=== PATIENT | male | born 2000 | race Asian ===

== ENCOUNTER 2022-09-16 18:51 | Inpatient (IN) | payer OTHER ==
[~2022-09-16] VITALS: Ht 170.2 cm; Wt 75.3 kg
--- NOTE | 2022-09-16 20:08 | NUR ---
BIBS. TO ER BED 3. AAOX4. NOT IN RESP DISTRESS. AMBULATORY. CAME IN FOR LOWER ABD PAIN X 1 DAY. REPORTS NORMAL BM. HOWEVER ENDORSES URINARY FREQUENCY AND URGENCY. PT IS AFEBRILE. URINE COLLECTED. AWAITING FOR EVAL
--- NOTE | 2022-09-16 20:45 | NUR ---
PT TAKEN TO CT VIA W/C
--- NOTE | 2022-09-16 20:51 | NUR ---
PT RETURNED TO ER BED [address]
[2022-09-16] MEDS ORDERED: IV NS 0.9% 1,000 ML BAG IV ONE (21:00)
[2022-09-16 21:07] LABS: BILIRUBIN,URINE NEGATIVE (NEGATIVE); COLOR,URINE YELLOW (YELLOW); LEUKOCYTE ESTERASE ,URINE NEGATIVE (NEGATIVE); NITRITE, URINE NEGATIVE (NEGATIVE); PROTEIN,URINE NEGATIVE (NEGATIVE); UGLUCOSE NEGATIVE (NEGATIVE); UROBILINOGEN,URINE 0.2 EU/dL (0.2)
[2022-09-16 21:14] LABS: RBC,URINE 0-2 /HPF (0-2); WBC,URINE 0-2 /HPF (0-3)
[2022-09-16 21:15] LABS: BACTERIA,URINE None seen /HPF (None Seen); SQUAMOUS EPITHELIAL CELL,UR 0-2 /HPF (None Seen); URINE AMORPHOUS PHOSPHATES Moderate /HPF (None Seen)
[2022-09-16] MEDS ORDERED: PIPERACILLIN /TAZOBACTAM 3.375 G in IV D5W 50 ML IV ONE (21:30)
[2022-09-16] MEDS ORDERED: PIPERACILLIN /TAZOBACTAM 3.375 G VIAL IV ONE (21:35)
--- NOTE | 2022-09-16 21:41 | NUR ---
COVID ANTIGEN SWAB COLLECTED AND SENT TO LAB
--- NOTE | 2022-09-16 21:42 | NUR ---
DR JACKIE MAGALLON PER DR SAKINA VU
[2022-09-16 21:46] LABS: BASOPHILS % (AUTO) 0.2 % (0.0-2.0); EOSINOPHILS % (AUTO) 1.7 % (0.0-6.0); HEMATOCRIT 43 % (39-51); HEMOGLOBIN 14.4 g/dL (13.5-17.5); LYMPHOCYTES # (AUTO) 1.8 K/uL (0.8-4.8); LYMPHOCYTES % (AUTO) 27.3 % (20.0-44.0); MEAN CORPUSCULAR HGB CONC 34 g/dl (31.0-36.0); MEAN CORPUSCULAR VOLUME 87 fL (80-96); MONOCYTES # (AUTO) 0.4 K/uL (0.1-1.30); NEUTROPHILS # (AUTO) 4.1 K/uL (1.8-8.9); NEUTROPHILS % (AUTO) 63.8 % (43.0-81.0); PLATELET COUNT (AUTO) 168 K/uL (150-450); RED BLOOD CELL COUNT(AUTO) 4.89 MIL/uL (4.5-6.0); WHITE BLOOD COUNT (AUTO) 6.4 K/uL (4.3-11.0)
[2022-09-16 22:06] LABS: CALCIUM, SERUM 9.2 mg/dL (8.5-10.1); CREATININE 1.1 mg/dL (0.6-1.3); POTASSIUM 3.2 mmol/L (3.5-5.1)
[2022-09-16 22:12] LABS: ALBUMIN 4.4 g/dL (3.4-5.0); BILIRUBIN,DIRECT 0.2 mg/dL (0.0-0.2); BILIRUBIN,TOTAL 0.5 mg/dL (0.2-1.0); TOTAL PROTEIN, SERUM 7.7 g/dL (6.4-8.2)
--- NOTE | 2022-09-16 22:19 | NUR ---
[facility] PAGED
[2022-09-16] MEDS ORDERED: ONDANSETRON HCL/PF 4 MG/2 ML VIAL IV ONE (22:30)
[2022-09-16] MEDS ORDERED: MORPHINE SULFATE INJ 2 MG/ML DISP.SYRIN IV ONE (22:30)
[2022-09-16] MEDS ORDERED: ONDANSETRON HCL/PF 4 MG/2 ML VIAL ONE (22:37)
[2022-09-16] MEDS ORDERED: MORPHINE SULFATE INJ 4 MG/ML DISP.SYRIN ONE (22:37)
[2022-09-17] MEDS ORDERED: ONDANSETRON HCL/PF 4 MG/2 ML VIAL IVP PRN
[2022-09-17] MEDS ORDERED: MAGNESIUM HYDROXIDE 30 ML UDC PO PRN
[2022-09-17] MEDS ORDERED: ZOLPIDEM TARTRATE 5 MG TABLET PO PRN
[2022-09-17] MEDS ORDERED: Z GUARD REMEDY 4 OZ OINT TP PRN
[2022-09-17] MEDS ORDERED: IV D5/0.45 NACL 1,000 ML IV PRN
[2022-09-17] MEDS ORDERED: ACETAMINOPHEN 325 MG TABLET PO PRN
[2022-09-17] MEDS ORDERED: MAG HYDROX/AL HYDROX/SIMETH 30 ML UDC PO PRN
--- NOTE | 2022-09-17 00:28 | NUR ---
bed 317-2
[2022-09-17] MEDS: POTASSIUM CL. PREMIX PERIPHER. 50 ML IV SCH ×4 (00:31→03:32)
--- NOTE | 2022-09-17 00:43 | NUR ---
REPORT GIVEN TO 3W RN FOR ABIGAIL
--- NOTE | 2022-09-17 00:55 | NUR ---
PT TRANSFERRING TO 3 317-2 VIA ACL PROTOCOL. VSS. ALL BELONGINGS WITH PT
[2022-09-17 01:05] VITALS: BP 119/63
--- NOTE | 2022-09-17 01:30 | NUR ---
MS GEODUCK DIVER NOTE RECEIVED REPORT FROM MANUAL ARTS TEACHER JESSICA AND PATIENT CAME TO THE UNIT AT AROUND 0105 VIA GURNEY WITH ER STAFF. PATIENT WAS ADMITTED D/T LOWER ABDOMINAL PAIN AND URINARY FREQUENCY AND URGENCY. DIRECTED TO ROOM. PATIENT IS ALERT AND ORIENTED X4. ABLE TO COMMUNICATE NEEDS WITH THE STAFFS. AFEBRILE AND NOT IN ANY FORM OF ACUTE DISTRESS. BREATHING EVEN AND NON LABORED. LUNG SOUNDS CLEAR ON AUSCULTATION. WITH MINIMAL PAIN AT THIS TIME. PATIENT NOTED WITH IV ACCESS ON LAC 18G RUNNING WITH 10MEQ KCL THAT WAS STARTER IN THE ER PER REPORT. EXPLAINED ADMISSION PROCESS AND AGREED TO IT. PATIENT IS AMBULATORY AND NO SKIN ISSUE WAS NOTED. VITALS TAKEN AND FOLLOWS: BP- 119/63, P- 68, T- 97.9, R- 20, O2 SAT ON RA 99%. ORIENTED TO ENVIRONMENT. LIST OF BELONGINGS ACCOMPLISHED BY ASSIGNED STAFF. ADVISED THE PATIENT TO REMAIN ON NPO ORDERED. SAFETY MEASURES IN PLACE. KEPT BED IN LOCKED AND IN LOW POSITION. SIDE RAILS UP X2. ADVISED TO USE THE CALL LIGHT WHEN IN NEED OF ASSISTANCE.
[2022-09-17 02:12] VITALS: BP 119/63
[2022-09-17] MEDS: MORPHINE SULFATE INJ 2 MG/ML DISP.SYRIN IV PRN ×3 (04:20→22:27)
[2022-09-17] MEDS ORDERED: PIPERACILLIN /TAZOBACTAM 3.375 G VIAL IV ONE (05:55)
[2022-09-17] MEDS ORDERED: ZOSYN IVPB 3.375 G in IV D5W 50ml IV SCH (06:00)
[2022-09-17 06:26] LABS: BASOPHILS % (AUTO) 0.4 % (0.0-2.0); EOSINOPHILS % (AUTO) 1.1 % (0.0-6.0); HEMATOCRIT 38 % (39-51); HEMOGLOBIN 12.9 g/dL (13.5-17.5); LYMPHOCYTES # (AUTO) 1.4 K/uL (0.8-4.8); LYMPHOCYTES % (AUTO) 21.6 % (20.0-44.0); MEAN CORPUSCULAR HGB CONC 34 g/dl (31.0-36.0); MEAN CORPUSCULAR VOLUME 87 fL (80-96); MONOCYTES # (AUTO) 0.5 K/uL (0.1-1.30); MONOCYTES % (AUTO) 7.4 % (2.0-12.0); NEUTROPHILS # (AUTO) 4.6 K/uL (1.8-8.9); NEUTROPHILS % (AUTO) 69.5 % (43.0-81.0); PLATELET COUNT (AUTO) 142 K/uL (150-450); RED BLOOD CELL COUNT(AUTO) 4.32 MIL/uL (4.5-6.0); WHITE BLOOD COUNT (AUTO) 6.6 K/uL (4.3-11.0)
--- NOTE | 2022-09-17 06:30 | NUR ---
MS RN NOTE PATIENT IN BED, ASLEEP BUT EASY TO AROUSE AND RESPONSIVE. ABLE TO MAKE NEEDS KNOWN. AFEBRILE AND NOT IN ANY FORM OF ACUTE DISTRESS. BREATHING EVEN AND NON LABORED. LUNG SOUNDS CLEAR ON AUSCULTATION. WITH IV ACCESS ON LAC 18G RUNNING WITH D5 1/2 NS AT 125ML/HR. ADVISED THE PATIENT TO REMAIN ON NPO ORDERED. MEDICATED ORDERED. ON IV ATB, MONITORED FOR ANY ADVERSE REACTION. SAFETY MEASURES IN PLACE. KEPT BED IN LOCKED AND IN LOW POSITION. SIDE RAILS UP X2. ADVISED TO USE THE CALL LIGHT WHEN IN NEED OF ASSISTANCE. ALL NURSING NEEDS ATTENDED. ENDORSED TO INCOMING SHIFT FOR CONTINUITY OF CARE.
[2022-09-17 07:13] LABS: CALCIUM, SERUM 8.3 mg/dL (8.5-10.1); CREATININE 0.9 mg/dL (0.6-1.3); MAGNESIUM 2.1 mg/dL (1.8-2.4); POTASSIUM 3.8 mmol/L (3.5-5.1)
--- NOTE | 2022-09-17 07:15 | NUR ---
MS NEVAREZ INITIAL NOTES RECEIVED REPORT FROM AM NURSE AURORA AND OR NURSE CAME TO SOCKET PULLER THE PATIENT FOR SURGERY. PT IS ALERT ORIENTED. NO SIGNS OF ANY ACUTE PAIN OR ANY DISCOMFORT NOTED. WILL CONTINUE MONITORING. Addendum: 09/17/22 at 1924 by DAWN MENCHACA LVN DISREGARD WRONG TIME DOCUMENTATION.
--- NOTE | 2022-09-17 07:15 | NUR ---
ms rn received on bed, awake,alert,oriented x4,not in any form of distress, respirations even and unlabored,no sob noted noted, lungs are clear,abdomen soft,positive bowel sounds, denies pain at this time, will monitor patient.
[2022-09-17 08:00] VITALS: BP 110/64
[2022-09-17] MEDS ORDERED: LORA10TA7 PO (08:51)
[2022-09-17] MEDS: PANTOPRAZOLE 40 MG VIAL IV SCH (09:26)
[2022-09-17] MEDS: PIPERACILLIN /TAZOBACTAM 3.375 G in IV D5W 100 ML IV SCH ×2 (14:00→22:16)
[2022-09-17] MEDS ORDERED: ANESTHESIA TRAY IN PYXIS 1 EA TRAY MC ONE (14:49)
[2022-09-17] MEDS ORDERED: BUPIVACAINE MPF W/EPI 0.25% 30 ML VIAL ONE (14:50)
[2022-09-17] MEDS ORDERED: LIDOCAINE 1%-EPI 1:100,000 20 ML VIAL ONE (14:51)
--- NOTE | 2022-09-17 15:12 | NUR ---
ms rn patient remains npo at this time, will obtain consent for surgery per order.
[2022-09-17 15:43] VITALS: BP 113/60
--- NOTE | 2022-09-17 17:23 | NUR ---
MS RN GELY Fay CAME TO SEE PT, WILL HAVE SURGERY AT 6PM,PATIENT IS AWARE, ALL NEEDS ATTENDED.
--- NOTE | 2022-09-17 17:43 | NUR ---
MS RN STILL WAITING FOR SURGERY TO BE DONE, OR DEPARTMENT , AWARE,STILL ONE CASE GOING ON, PATIENT WILL BE NEXT.
--- NOTE | 2022-09-17 19:15 | NUR ---
MS ROQUE INITIAL NOTES RECEIVED REPORT FROM AM NURSE AURORA , OR NURSE CAME TO SECURITY TECH THE PT FOR SURGERY. DX OF APPENDICITIS. PT IS ALERT ORIENTED X4, NO SIGNS OF ANY PAIN NOTED AT THIS TIME. WILL CONTINUE MONITORING.
[2022-09-17] MEDS ORDERED: ROCURONIUM BROMIDE 50 MG/5 ML ONE (19:57)
[2022-09-17] MEDS ORDERED: FENTANYL PF 100MCG/2ML AMPUL ONE (19:57)
[2022-09-17 21:40] VITALS: BP 127/75
--- NOTE | 2022-09-17 21:50 | NUR ---
ms dariel notes Received pt from recovery room S/p Laparoscopic appendectomy and got report from recovery nurse. Pt is alert oriented x4, no signs fo any N/V and any discomfort noted at this time. Re- start the IVF D51/2NS at 125 ml/hr as ordered. Vital signs taken BP 122/75, pulse 80, resp.18, temp 97.9 and o2 sat 99%. kept him comfortable at all times. Ice pack also applied for pt comfort. will continue monitoring.
--- NOTE | 2022-09-17 22:10 | NUR ---
ms dariel notes Called Pharmacy to verified if its ok to give Zosyn IVPB that was due at 21:00 because pt had Ancef at recovery room. "OK ' to give per pharmacy even its due an hr ago. will continue monitoring.
[2022-09-18] MEDS: PIPERACILLIN /TAZOBACTAM 3.375 G in IV D5W 100 ML IV SCH ×2 (05:06→12:35)
--- NOTE | 2022-09-18 06:50 | NUR ---
MS CROP GRAIN OR LIVE[employer]OCK FARM MANAGER CLOSING NOTES PT BACK TO SLEEP , DENIES ANY PAIN OR ANY DISCOMFORT AT THIS TIME. ALL DUE MEDS GIVEN AND ALL NEEDS MET. KEPT HIM COMFORTABLE AT ALL TIMES. DRESSING DRY AND INTACT, STILL WITH ICE PACK FOR PT COMFORT. IVPB ZOSYN INFUSING AT 25ML/HR ORDERED. WILL ENDORSE TO AM NURSE FOR CONTINUITY OF CARE, PLACE CALL LIGHT AT REACH
--- NOTE | 2022-09-18 07:30 | NUR ---
RN MS NOTES PT IN BED, AWAKE, ALERT AND ORIENTED, DENIES PAIN AT THIS TIME, RESPIRATIONS NORMAL, CALL LIGHT WITHIN REACH, IV FLUIDS INFUSING WELL.
[2022-09-18 08:00] VITALS: BP 110/60
[2022-09-18] MEDS: PANTOPRAZOLE 40 MG VIAL IV SCH (08:39)
[2022-09-18] MEDS: HYDROCODONE/APAP 5/325MG TABLET PO PRN ×2 (08:40→16:09)
[2022-09-18] MEDS ORDERED: IBUP-1955 PO (09:24)
[2022-09-18 16:00] VITALS: BP 112/60
--- NOTE | 2022-09-18 17:00 | NUR ---
RN MS NOTES PT AWAKE, ALERT AND ORIENTED, ABLE TO AMBULATE INSIDE HIS ROOM WITH STEADY GAIT, ABLE TO DO NUMBER 2 TODAY, TOLERATES REGULAR FOOD, SEEN AND EXAMINED BY FARRAH FLOOR PLAN ADJUSTER FOR DR. MEJIA, CLEARED FOR DISCHARGE, DISCHARGE ORDER GIVEN BY YAMILETH, DISCHARGE AND MEDICATION INSTRUCTIONS PROVIDED TO PT, VERBALIZED UNDERSTANDING, NO BLEEDING NOTED TO ABDOMINAL LAPAROSCOPIC SITES, STERISTRIPS INTACT AND DRY, BELONGINGS ACCOUNTED FOR, ASSISTED TO HOSPITAL LOBBY VIA WHEELCHAIR, LEFT VIA PRIVATE CAR IN STABLE CONDITION.
[2022-09-19] MEDS ORDERED: PANTOPRAZOLE 40 MG TABLET.DR PO SCH (07:30)
== END 2022-09-18 16:45 | disposition home or self-care (01) | DRG 343 ==
LOC: ER 19:10 → MED 09-17 00:30
PROVIDERS: ADMIT Student in an Organized Health Care Education/Training Program; ATTEND Internal Medicine
PROC: 0DTJ4ZZ Resection of Appendix, Percutaneous Endoscopic Approach (ICD-10-PCS; principal; 2022-09-17)
DX: K35.80 Unspecified acute appendicitis (principal); E87.6 Hypokalemia; Z20.822 Contact with and (suspected) exposure to COVID-19; R74.8 Abnormal levels of other serum enzymes; K40.20 Bilateral inguinal hernia, without obstruction or gangrene, not specified as recurrent; K38.1 Appendicular concretions; D64.9 Anemia, unspecified
CPT/HCPCS: 36415; 80048-TC; 80076-TC; 81001; 82550-TC; 82553; 83690-TC; 83735-TC; 84100-TC; 85025-TC; 85730-TC; 86850-TC; 87081-TC; 87491; 87591; 88304-TC; C9113; C9803; G0378; J0330; J0690; J1100; J1885; J2270; J2405; J2543; J2704; J3010; J3480; J3490; J7030; J7060

== ENCOUNTER 2025-06-03 12:48 | Emergency (ER) | payer OTHER ==
[~2025-06-03] VITALS: Ht 170.2 cm; Wt 76.2 kg
[~2025-06-03 12:48] MED LIST: IBUP-1955 PO; LORA10TA7 PO
[2025-06-03 12:57] VITALS: TEMP 98.6
[2025-06-03] MEDS ORDERED: KETOROLAC TROMETHAMINE 15 MG/ML VIAL ONE (13:12)
[2025-06-03] MEDS ORDERED: METHOCARBAMOL (500MG) 500 MG TABLET ONE (13:12)
[2025-06-03] MEDS: METHOCARBAMOL (500MG) 500 MG TABLET PO ONE (13:17)
[2025-06-03] MEDS: KETOROLAC TROMETHAMINE 15 MG/ML VIAL IM ONE (13:17)
[2025-06-03] MEDS ORDERED: LIDO30AD10 TP (14:00)
[2025-06-03] MEDS ORDERED: METH-647 PO (14:00)
[2025-06-03] MEDS ORDERED: IBUP-1490 PO (14:00)
[2025-06-03 14:16] VITALS: BP 118/75; O2SAT 100
== END 2025-06-03 14:16 | disposition home or self-care (01) ==
LOC: ER 12:55
DX: M54.2 Cervicalgia (principal); R68.84 Jaw pain; Z90.49 Acquired absence of other specified parts of digestive tract; Z90.89 Acquired absence of other organs; Z60.2 Problems related to living alone
CPT/HCPCS: 99283; 96372; J1885

== ENCOUNTER 2025-08-27 08:32 | Emergency (ER) | payer OTHER ==
[~2025-08-27] VITALS: Ht 170.2 cm; Wt 77.1 kg
[~2025-08-27 08:32] MED LIST changes: +IBUP-1490 PO; +LIDO30AD10 TP; +METH-647 PO
[2025-08-27] MEDS ORDERED: LIDOCAINE 1% INJ 50 ML MDV IJ ONE (08:51)
[2025-08-27] MEDS ORDERED: BACITRACIN ZINC OINT PACKET 1 EA PACKET TP ONE (08:51)
[2025-08-27] MEDS: LIDOCAINE 1% INJ 50 ML MDV IJ ONE (08:54)
[2025-08-27] MEDS ORDERED: CEPH-570 PO (09:03)
[2025-08-27 09:45] VITALS: BP 110/68; TEMP 98; O2SAT 100
== END 2025-08-27 09:48 | disposition home or self-care (01) ==
LOC: ER 08:38
DX: S91.114A Laceration without foreign body of right lesser toe(s) without damage to nail, initial encounter (principal); Z90.49 Acquired absence of other specified parts of digestive tract; Z90.89 Acquired absence of other organs; W26.8XXA Contact with other sharp object(s), not elsewhere classified, initial encounter; Y93.89 Activity, other specified; Y92.89 Other specified places as the place of occurrence of the external cause; Y99.9 Unspecified external cause status
CPT/HCPCS: 12001; 99283; J3490